=== PATIENT | female | born 1990 | race African-American/Black ===

== ENCOUNTER 2017-07-25 15:33 | Emergency (ER) | payer OTHER ==
[~2017-07-25] VITALS: Ht 162.6 cm; Wt 45.5 kg
[~2017-07-25 15:33] MED LIST: AZITHROMYC1 GM/PACKE PO; MOTRIN 600600 MG/TAB PO; PRENATAL PO; ZOFRAN 4MG T4 MG/TAB PO
[2017-07-25 15:37] VITALS: BP 102/72; TEMP 99.1
[2017-07-25 16:19] LABS: BASO % 0.3 % (0.0-2.0); EOS # 0.2 (0.0-0.7); EOS % 2.6 % (0-4.0); GRAN # 6.2 (1.4-6.5); GRAN % 82.8 % (42.2-75.2); HEMATOCRIT 47.7 % (37.0-47.0); HEMOGLOBIN 16.2 g/dl (12.5-16.0); LYMPH # 0.6 (1.2-3.4); LYMPH % 8.5 % (20.0-51.0); MEAN CELL VOLUME 91 fl (80.0-100.0); MEAN CORPUSCULAR HEMOGLOBIN 31 pg (27.0-31.0); MEAN CORPUSCULAR HGB CONC 34 g/dl (33.0-37.0); MONO # 0.4 (0.1-0.6); MONO % 5.4 % (1.7-9.3); PLATELET COUNT 383 K/mm3 (130-400); RED BLOOD COUNT 5.22 M/mm3 (4.10-5.30); WHITE BLOOD COUNT 7.4 K/mm3 (4.8-10.8)
[2017-07-25 16:26] LABS: ADJUSTED CALCIUM 8.9 mg/dL (8.4-10.2); ALBUMIN 5.1 gm/dL (3.5-5.0); BILIRUBIN,TOTAL 1.7 mg/dL (0.0-1.0); CALCIUM 9.8 mg/dL (8.4-10.2); CREATININE, serum 0.82 mg/dL (0.52-1.25); POTASSIUM 3.7 mmol/L (3.4-5.0); TOTAL PROTEIN 8.5 gm/dL (6.4-8.2)
[2017-07-25] MEDS ORDERED: ZOFRAN ODT4 MG PO (16:57)
[2017-07-25 17:57] VITALS: PULSE 98
== END 2017-07-25 17:58 | disposition home or self-care (01) ==
LOC: COL.ER 15:33
PROVIDERS: Emergency Medicine
DX: R11.2 Nausea with vomiting, unspecified (principal); R19.7 Diarrhea, unspecified
CPT/HCPCS: J2405; J2550; J7030

== ENCOUNTER 2018-09-04 09:20 | Emergency (ER) | payer OTHER ==
[~2018-09-04] VITALS: Ht 165.1 cm; Wt 45.5 kg
[~2018-09-04 09:20] MED LIST changes: +ZOFRAN ODT4 MG PO
[2018-09-04 09:28] VITALS: TEMP 98.8
[2018-09-04] MEDS ORDERED: ZOLOFT 25MG25 MG PO (09:47)
[2018-09-04 09:54] LABS: COLLECTION METHOD CLEAN CATCH
[2018-09-04 09:57] LABS: BASO % 0.2 % (0.0-2.0); EOS # 0.1 (0.0-0.7); EOS % 1.4 % (0-4.0); GRAN # 2.9 (1.4-6.5); GRAN % 66.1 % (42.2-75.2); HEMATOCRIT 44.4 % (37.0-47.0); LYMPH % 23.8 % (20.0-51.0); MEAN CELL VOLUME 94 fl (80.0-100.0); MEAN CORPUSCULAR HEMOGLOBIN 32 pg (27.0-31.0); MEAN CORPUSCULAR HGB CONC 34 g/dl (33.0-37.0); MEAN PLATELET VOLUME 8.6 fl (7.4-10.4); MONO # 0.4 (0.1-0.6); PLATELET COUNT 630 K/mm3 (130-400); RED BLOOD COUNT 4.74 M/mm3 (4.10-5.30); REDCELL DISTRIBUTION WIDTH-CV 12.5 % (11.5-14.5)
[2018-09-04 10:04] LABS: MUCOUS Present /lpf; PH 5 (5-8); SQUAMOUS EPITHELIAL 0-2 /hpf; URINE APPEARANCE Hazy; URINE BACTERIA None Seen /hpf; URINE BILIRUBIN Negative (NEGATIVE); URINE BLOOD Negative (NEGATIVE); URINE COLOR Yellow; URINE GLUCOSE Negative (NEGATIVE); URINE KETONE 2+ (NEGATIVE); URINE LEUKOCYTE ESTERASE Negative (NEGATIVE); URINE NITRATE Negative (NEGATIVE); URINE PROTEIN(semi-quant) 2+ (NEGATIVE); URINE RBC 0-2 /hpf; URINE UROBILINOGEN Negative (NEGATIVE)
[2018-09-04 10:11] LABS: ALBUMIN 4.5 gm/dL (3.5-5.0); BILIRUBIN,TOTAL 0.9 mg/dL (0.0-1.0); C-REACTIVE PROTEIN 0.8 mg/dL (0.0-0.9); CALCIUM 9.9 mg/dL (8.4-10.2); CREATININE, serum 0.82 mg/dL (0.52-1.25); TOTAL PROTEIN 8.6 gm/dL (6.4-8.2)
[2018-09-04] MEDS ORDERED: ZOFRAN ODT4 MG PO (11:16)
[2018-09-04 11:30] VITALS: BP 113/88; PULSE 97
== END 2018-09-04 11:31 | disposition home or self-care (01) ==
LOC: COL.ER 09:20
PROVIDERS: Nurse Practitioner
DX: R11.2 Nausea with vomiting, unspecified (principal); R19.7 Diarrhea, unspecified; J45.909 Unspecified asthma, uncomplicated
CPT/HCPCS: J2405; J7030

== ENCOUNTER 2020-02-27 00:44 | Outpatient (CLI) | payer OTHER ==
[~2020-02-27] VITALS: Ht 165.1 cm; Wt 57.3 kg
[~2020-02-27 00:44] MED LIST changes: +PRENATAL TABLET PO; +ZOLOFT 25MG25 MG PO
--- NOTE | 2020-02-27 00:50 | NUR ---
0050- PT PRESENTS TO LDR COMPLAINING OF CONTRACTIONS. AMBULATORY TO ROOM LR3, CHANGED INTO GOWN. 0054- EFM X2 APPLIED. PT DENIES LEAKING FLUID OR VAGINAL BLEEDING. STATES SHE HAS BEEN KRISTAN SINCE 3229 AND HAS BEEN FEELING BABY MOVE. COVID SCREENING IS NEGATIVE. 0100- SVE BY THIS NURSE 1-. PLAN OF CARE FOR LABOR CHECK DISCUSSED AND QUESTIONS ANSWERED. 0110- NURSING ADMISSION HISTORY AND ASSESSMENT COMPLETE. 0120- ORAL HYDRATION PROVIDED. PT DENIES NEEDS. 0205- PT REPORTS THAT SOME OF HER CONTRACTIONS ARE MORE INTENSE. SVE BY THIS NURSE UNCHANGED. DISCUSSED PROBABLE DISMISSAL WITH LABOR PRECAUTIONS. 0209- DR ALBARRAN CALLED AND UPDATED ON PTS HISTORY, COMPLAINTS, STRIP INTERPRETATION, SVE UNCHANGED. ORDER RECEIVED FOR DISMISSAL TO HOME. 0215- PT OFF MONITORS FOR DISMISSAL. 0225- DISMISSAL INSTRUCTIONS GIVEN AND PT VERBALIZES UNDERSTANDING. PT DISMISSED TO HOME AMBULATORY ACCOMPANIED BY SELF.
[2020-02-27 01:15] VITALS: BP 114/75; PULSE 73; TEMP 98.4
== END 2020-02-27 02:25 | disposition home or self-care (01) ==
LOC: LDRO 00:44 → LDR 00:50 → LDRO 02:25
DX: O62.9 Abnormality of forces of labor, unspecified (principal); Z3A.37 37 weeks gestation of pregnancy
CPT/HCPCS: OP

== ENCOUNTER 2020-03-11 20:40 | Inpatient (IN) | payer OTHER ==
[~2020-03-11] VITALS: Ht 162.6 cm; Wt 57.3 kg
[2020-03-11] VITALS (7 sets, daily range): BP systolic 96–137; BP diastolic 58–83; PULSE 68–100; TEMP 98
--- NOTE | 2020-03-11 20:40 | NUR ---
Pt arrived on unit via wheelchair with complaints of contractions every 2-4 minutes since 1700. Pt denies any leaking of fluid or vaginal bleeding and reports normal movement. EFM and toco monitors started. SVE by this RN . Vital signs WNL. Spoke with Dr. Hernandez. FHR tracing, SVE and history reviewed. Orders for labor admission received. Plan of care reviewed with pt.
[2020-03-11 21:36] LABS: BASO % 0.3 % (0.0-2.0); EOS # 0.1 (0.0-0.7); EOS % 1.2 % (0-4.0); GRAN # 4.9 (1.4-6.5); GRAN % 65.1 % (42.2-75.2); HEMATOCRIT 38.4 % (37.0-47.0); HEMOGLOBIN 12.7 g/dl (12.5-16.0); LYMPH # 1.8 (1.2-3.4); LYMPH % 24.1 % (20.0-51.0); MEAN CELL VOLUME 90 fl (80.0-100.0); MEAN CORPUSCULAR HEMOGLOBIN 30 pg (27.0-31.0); MEAN CORPUSCULAR HGB CONC 33 g/dl (33.0-37.0); MEAN PLATELET VOLUME 10.3 fl (7.4-10.4); MONO # 0.6 (0.1-0.6); MONO % 8.6 % (1.7-9.3); PLATELET COUNT 339 K/mm3 (130-400); RED BLOOD COUNT 4.27 M/mm3 (4.10-5.30); REDCELL DISTRIBUTION WIDTH-CV 14.2 % (11.5-14.5)
--- NOTE | 2020-03-11 21:53 | NUR ---
2152- TIMI Taylor at the bedside for epidural placement. Pt sitting up on edge of the bed. SPO2 monitor started. EFM intermittently tracing maternal HR as coorelates with SPO2. 2154- Emesis 2207- Test dose done per TIMI Taylor. See anesthesia record for details. 2212- Repositioned pt back to supine with left wedge. EFM and toco monitors adjusted.
[2020-03-12] VITALS (18 sets, daily range): BP systolic 86–154; BP diastolic 46–93; PULSE 56–117; TEMP 97.4–98.3
--- NOTE | 2020-03-12 01:45 | NUR ---
0130- Pt reports feeling pressure. SVE 10/100/+2 with membranes protruding from vagina. Spoke with Dr. Hernandez for an update on pt's status. FHR tracing reviewed. MD sneed to hospital for pending delivery. 0140- MD at the bedside. Pt set up for delivery. 0144- AROM by Dr. Hernandez. Pushing started. 0145- of viable female . Cords clamped and cut. [place] placed on mom's abdomen. Care of the given to nursery RN at the bedside. 0148- of placenta. Fundus firm and lochia WNL. Pitocin started at 333ml/hr per order and protocol.
--- NOTE | 2020-03-12 04:30 | NUR ---
Pt up to the bathroom via wheelchair with assistance and without complications. Pt was able to void. Adina-care done. Assisted pt to wheelchair for transfer to room 214. Oriented to room, bed and call light within reach.
[2020-03-12] MEDS ORDERED: IBU800 M1 PO (08:55)
[2020-03-13 08:48] VITALS: BP 104/68; PULSE 68; TEMP 98.1
== END 2020-03-13 12:00 | disposition home or self-care (01) | DRG 807 ==
LOC: LDRO 20:40 → LDR 21:02 → OB 21:02
PROVIDERS: Obstetrics & Gynecology; ADMIT Obstetrics & Gynecology
PROC: 10E0XZZ Delivery of Products of Conception, External Approach (ICD-10-PCS; principal; 2020-03-12)
DX: O80 Encounter for full-term uncomplicated delivery (principal); Z37.0 Single live birth; Z3A.39 39 weeks gestation of pregnancy
CPT/HCPCS: J2590; J2795; J7120